=== PATIENT | female | born 1995 | race Caucasian/White ===

== ENCOUNTER 2018-07-23 13:34 | Inpatient (IN) | payer BC ==
[2018-07-23 16:06] LABS: RUPTURE FETAL MEMBRANES NEGATIVE (NEGATIVE)
[2018-07-23] MEDS ORDERED: AMPICILLIN 2 GM/NS (PMX) 100 ML (16:13)
[2018-07-23] MEDS: BUTORPHANOL 2 MG INJ IV (16:26)
[2018-07-23] MEDS: AMPICILLIN 2 GM/NS (PMX) 100 ML IV (16:26)
[2018-07-23] MEDS: LACTATED RINGER'S 1,000 ML IV ×2 (16:27→18:19)
[2018-07-23] MEDS ORDERED: IBUPROFEN 600 MG TAB PO (16:30)
[2018-07-23] MEDS ORDERED: MISOPROSTOL 200 MCG TAB PR ×2 (16:30→23:30)
[2018-07-23] MEDS ORDERED: METHYLERGONOVINE 0.2 MG INJ IM ×2 (16:30→23:30)
[2018-07-23] MEDS ORDERED: OXYTOCIN 30 UNITS/LR 500 ML IV ×2 (16:30→23:30)
[2018-07-23] MEDS ORDERED: CARBOPROST 250 MCG INJ IM ×2 (16:30→23:30)
[2018-07-23] MEDS ORDERED: LIDOCAINE 1% (MPF) 30 ML INJ INJ (16:30)
[2018-07-23] MEDS ORDERED: BUTORPHANOL 1 MG INJ IV (16:30)
[2018-07-23 16:50] LABS: ADD MAN DIFF? NO
[2018-07-23 16:54] LABS: WHITE BLOOD COUNT 9.9 10^3/ul (4.8-10.8)
[2018-07-23 16:54] LABS: BASOPHILS % 0.4 % (0.0-2.0); EOSINOPHILS # 0.1 10^3/ul (0.0-0.5); EOSINOPHILS % 0.7 % (0.0-7.0); HEMATOCRIT 34.9 % (37.0-47.0); HEMOGLOBIN 11.4 g/dl (12.0-16.0); LYMPHOCYTES # 2.5 10^3/ul (0.8-2.9); MEAN CORPUSCULAR HEMOGLOBIN 26.1 pg (29.0-33.0); MEAN CORPUSCULAR HGB CONC 32.7 g/dl (32.0-37.0); MEAN CORPUSCULAR VOLUME 79.9 fl (82.0-101.0); MEAN PLATELET VOLUME 10.1 fl (7.4-10.4); MONOCYTE # 0.5 10^3/ul (0.3-0.9); MONOCYTES % 4.7 % (0.0-11.0); NEUTROPHIL # 6.8 10^3/ul (1.6-7.5); NEUTROPHILS % 68.3 % (39.0-77.0); PLATELET COUNT 321 10^3/UL (140-415); RED BLOOD COUNT 4.37 10^6/ul (4.20-5.40); RED CELL DISTRIBUTION WIDTH 14.6 % (11.5-14.5)
[2018-07-23 17:12] LABS: INR 0.99; PROTIME 13.2 Sec (11.9-14.9)
[2018-07-23 17:13] LABS: PARTIAL THROMBOPLASTIN TIME 28.5 Sec (23.0-35.0)
[2018-07-23 17:47] LABS: HEPATITIS B SURFACE ANTIGEN NEGATIVE (NEGATIVE)
[2018-07-23] MEDS ORDERED: ROPIVACAINE 0.2% 100 ML (17:54)
[2018-07-23] MEDS ORDERED: NALOXONE (0.4 MG/ML) INJ IV (18:00)
[2018-07-23] MEDS ORDERED: ONDANSETRON 4 MG INJ IV (18:00)
[2018-07-23] MEDS ORDERED: DIPHENHYDRAMINE 50 MG INJ IV (18:00)
[2018-07-23] MEDS ORDERED: FENTAnyl 2MCG/ML-ROPIV 0.2% 100 ML BAG EPI (18:00)
[2018-07-23] MEDS: EPHEDrine SULFATE 50 MG/5 ML SYG IV (18:30)
[2018-07-23] MEDS: KETOROLAC 30 MG INJ IV (19:55)
[2018-07-23] MEDS: OXYTOCIN 30 UNITS/LR 500 ML IV ×2 (20:05→20:41)
[2018-07-23] MEDS: MINERAL OIL LIGHT 10 ML VIAL TOP (20:14)
[2018-07-23] MEDS: AMPICILLIN 1 GM/NS (PMX) 50 ML IV (20:30)
[2018-07-23] MEDS ORDERED: DIBUCAINE 1% 30 GM OINT TOP (23:30)
[2018-07-23] MEDS ORDERED: ZOLPIDEM 5 MG TAB PO (23:30)
[2018-07-23] MEDS ORDERED: BENZOCAINE 20% 56 ML SPRAY TOP (23:30)
[2018-07-24] MEDS: IBUPROFEN 600 MG TAB PO ×4 (00:15→17:42)
[2018-07-24] MEDS: LANOLIN HPA 1 PKT TOP (00:16)
[2018-07-24] MEDS: LACTATED RINGER'S 1,000 ML IV* ×4 (00:16→23:25)
[2018-07-24] MEDS: CEPHALEXIN 500 MG CAP PO ×4 (00:17→17:41)
[2018-07-24] MEDS: HYDROCODONE/APAP (5/325) TAB PO (02:49)
[2018-07-24 06:52] LABS: ADD MAN DIFF? NO
[2018-07-24 06:55] LABS: WHITE BLOOD COUNT 12.9 10^3/ul (4.8-10.8)
[2018-07-24 06:55] LABS: BASOPHILS % 0.3 % (0.0-2.0); EOSINOPHILS # 0.1 10^3/ul (0.0-0.5); EOSINOPHILS % 0.5 % (0.0-7.0); HEMATOCRIT 33.4 % (37.0-47.0); HEMOGLOBIN 10.7 g/dl (12.0-16.0); LYMPHOCYTES % 23.5 % (15.0-51.0); MEAN CORPUSCULAR HEMOGLOBIN 25.8 pg (29.0-33.0); MEAN CORPUSCULAR VOLUME 80.5 fl (82.0-101.0); MEAN PLATELET VOLUME 10.1 fl (7.4-10.4); MONOCYTE # 0.8 10^3/ul (0.3-0.9); MONOCYTES % 6.3 % (0.0-11.0); NEUTROPHIL # 8.8 10^3/ul (1.6-7.5); NEUTROPHILS % 68.5 % (39.0-77.0); PLATELET COUNT 267 10^3/UL (140-415); RED BLOOD COUNT 4.15 10^6/ul (4.20-5.40); RED CELL DISTRIBUTION WIDTH 14.7 % (11.5-14.5)
[2018-07-24] MEDS ORDERED: CEFAZOLIN 1 GM INJ (07:00)
[2018-07-24] MEDS: MAGNESIUM HYDROXIDE 30ML CUP PO ×2 (09:00→20:33)
[2018-07-24] MEDS: SENNA/DOCUSATE NA (8.6MG/50MG) TAB PO ×2 (09:00→20:33)
[2018-07-24 14:41] LABS: RAPID PLASMA REAGIN NONREACTIVE (NR)
[2018-07-24] MEDS ORDERED: SUCCINYLCHOLINE CHLORIDE 100 MG/5 ML SYG IV (15:19)
[2018-07-24] MEDS ORDERED: FENTAnyl 50 MCG/ML VIAL ×2 (15:19→15:25)
[2018-07-24] MEDS ORDERED: PROPOFOL 20 ML (15:19)
[2018-07-24] MEDS ORDERED: ROCURONIUM 50 MG INJ (15:19)
[2018-07-24] MEDS ORDERED: LIDOCAINE 1% (MDV) 20 ML INJ (15:20)
[2018-07-24] MEDS ORDERED: MIDAZOLAM 1 MG/ML 2 ML INJ (15:20)
[2018-07-24] MEDS ORDERED: morphine SULFATE/PF (10 MG/10 ML) INJ (15:24)
[2018-07-24] MEDS ORDERED: ROPIVACAINE 0.5 % 30 ML VIAL (15:24)
[2018-07-24] MEDS ORDERED: NALOXONE (0.4 MG/ML) INJ IV (15:30)
[2018-07-24] MEDS ORDERED: ONDANSETRON 4 MG INJ IV (15:30)
[2018-07-24] MEDS ORDERED: ZOLPIDEM 5 MG TAB PO (15:30)
[2018-07-24] MEDS ORDERED: DIPHENHYDRAMINE 50 MG INJ IV (15:30)
[2018-07-24] MEDS ORDERED: HYDROmorphONE 0.5 MG/0.5 ML SYG IV ×2 (15:30)
[2018-07-24] MEDS ORDERED: KETOROLAC 30 MG INJ IV (15:30)
[2018-07-24] MEDS ORDERED: BUPIVACAINE 0.5%/EPI (SDV) 30 ML INJ (15:37)
[2018-07-24] MEDS ORDERED: METOCLOPRAMIDE 10 MG INJ (15:53)
[2018-07-24] MEDS ORDERED: FAMOTIDINE 20 MG INJ (15:53)
[2018-07-24] MEDS ORDERED: ONDANSETRON 4 MG INJ (15:53)
[2018-07-24] MEDS: KETOROLAC 30 MG INJ IM ×3 (17:14→17:27)
[2018-07-24] MEDS: BUTORPHANOL 2 MG INJ IM (17:14)
[2018-07-24] MEDS: LACTATED RINGER'S 1,000 ML IV (18:56)
[2018-07-24] MEDS: WITCH HAZEL/GLYCERIN PAD PR (20:33)
[2018-07-25] MEDS: LACTATED RINGER'S 1,000 ML IV (01:08)
[2018-07-25] MEDS: CEPHALEXIN 500 MG CAP PO ×4 (05:36→18:08)
[2018-07-25] MEDS: IBUPROFEN 600 MG TAB PO ×4 (05:36→18:08)
[2018-07-25] MEDS: LACTATED RINGER'S 1,000 ML IV* (05:36)
[2018-07-25] MEDS: MEASLES,MUMPS,RUBELLA VACCINE INJ SC* (07:46)
[2018-07-25] MEDS: DIPHTH/TET/ACEL PERTUSS (ADULT) 0.5 ML VIAL IM* (07:46)
[2018-07-25] MEDS: SENNA/DOCUSATE NA (8.6MG/50MG) TAB PO (08:41)
[2018-07-25] MEDS: VARICELLA VACCINE LIVE/PF 1,350 UNIT/0.5 ML ML SC* (09:32)
[2018-07-25] MEDS: MAGNESIUM HYDROXIDE 30ML CUP PO (09:32)
[2018-07-25] MEDS: HYDROCODONE/APAP (5/325) TAB PO (15:17)
== END 2018-07-25 19:20 | disposition home or self-care (01) | DRG 798 ==
LOC: OBT 13:34 → L-D 13:34 → OBT 15:48 → L-D 15:48 → PP1 21:49
PROVIDERS: Obstetrics & Gynecology
PROC: 0UB70ZZ Excision of Bilateral Fallopian Tubes, Open Approach (ICD-10-PCS; 2018-07-24 15:00)
PROC: 10E0XZZ Delivery of Products of Conception, External Approach (ICD-10-PCS; principal; 2018-07-24 15:22)
DX: O99.824 Streptococcus B carrier state complicating childbirth (principal); Z37.0 Single live birth; Z3A.39 39 weeks gestation of pregnancy; Z30.2 Encounter for sterilization
CPT/HCPCS: 62319; 76815; 76818; 84112; 85025; 85610; 85730; 86592; 86850; 86900; 86901; 87340; 88302; 90716